=== PATIENT | male | born 1955 | race Asian ===

== ENCOUNTER 2021-11-14 16:09 | Emergency (ER) | payer OTHER ==
[~2021-11-14] VITALS: Ht 167.6 cm; Wt 59.0 kg
--- NOTE | 2021-11-14 16:15 | NUR ---
TO ER BED 11. BIB DAUGHTER C/O SORE THROAT AND DIFFICULTY SWALLOWING SINCE TUESDAY. TRIED OVER THE COUNTER MEDICATION, DID NOT RELIEVE SYMTPOMS. VITALS WITHIN NORMAL LIMTIS. WARM BLANKET PROVIDED FOR COMFORT. AWAITING MD LOZANO.
[2021-11-14] MEDS ORDERED: LIDOCAINE VISCOUS 2% UD 15 ML UDC ONE (16:46)
[2021-11-14] MEDS ORDERED: DEXAMETHASONE SOD PHOSPHATE 10 MG/ML VIAL ONE (16:46)
[2021-11-14] MEDS ORDERED: MENTHOL/CETYLPYRD (CEPACOL) 1 LOZ LOZENGE ONE (16:47)
[2021-11-14] MEDS ORDERED: ACETAMINOPHEN 325 MG TABLET ONE ×2 (16:47)
[2021-11-14] MEDS ORDERED: BENZ1LOZ58 PO (16:56)
[2021-11-14 16:59] VITALS: BP 121/68
--- NOTE | 2021-11-14 16:59 | NUR ---
Patient discharged to home in stable condition. Written and verbal after care instructions given. Patient verbalizes understanding of instruction.
[2021-11-14] MEDS ORDERED: ACETAMINOPHEN 325 MG TABLET PO ONE (17:00)
[2021-11-14] MEDS ORDERED: MENTHOL/CETYLPYRD (CEPACOL) 1 LOZ LOZENGE PO ONE (17:00)
[2021-11-14] MEDS ORDERED: DEXAMETHASONE SOD PHOSPHATE 4 MG/ML VIAL IM ONE (17:00)
[2021-11-14] MEDS ORDERED: LIDOCAINE VISCOUS 2% UD 15 ML UDC MM ONE (17:00)
== END 2021-11-14 17:01 | disposition home or self-care (01) ==
LOC: ER 16:18
DX: Z79.899 Other long term (current) drug therapy (principal); J02.9 Acute pharyngitis, unspecified
CPT/HCPCS: 96372; 99283; J1100

== ENCOUNTER 2022-01-31 16:27 | Emergency (ER) | payer OTHER ==
[~2022-01-31] VITALS: Ht 167.6 cm; Wt 49.9 kg
[~2022-01-31 16:27] MED LIST: BENZ1LOZ58 PO
[2022-01-31 17:02] VITALS: BP 129/78
--- NOTE | 2022-01-31 17:14 | NUR ---
ESTHELA BURGOS, W/ PT FOR EVAL
[2022-01-31] MEDS ORDERED: CLOB15OI3 TP (17:25)
--- NOTE | 2022-01-31 17:31 | NUR ---
Patient discharged to home in stable condition. Written and verbal after care instructions given. Patient verbalizes understanding of instruction.
== END 2022-01-31 17:31 | disposition home or self-care (01) ==
LOC: ER 16:40
DX: L23.7 Allergic contact dermatitis due to plants, except food (principal); Z79.899 Other long term (current) drug therapy